=== PATIENT | male | born 1995 | race Caucasian/White ===

== ENCOUNTER 2025-06-26 19:16 | Emergency (ER) | payer OTHER ==
[~2025-06-26] VITALS: Ht 177.8 cm; Wt 78.0 kg
[2025-06-26 19:48] LABS: BASOPHILS 0.3 % (0.2-1.2); EOSINOPHILS 0.6 % (0.8-7.0); LYMPHOCYTES 18.9 % (21.8-53.1); MCH 29.3 PG (25.7-32.2); MCHC 33.2 g/dL (32.3-36.5); MCV 88.2 fL (79.0-92.2); MONOCYTES 7.9 % (5.3-12.2); NEUTROPHILS 71.8 % (34.0-67.9); RBC 4.82 M/uL (4.63-6.08)
[2025-06-26 20:06] LABS: ALT (SGPT) 27.0 U/L (14-59); AST (SGOT) 22.0 U/L (15-37); GLOMERULAR FILTRATION RATE,EST 84.0 mL/min (>60); PROTEIN, TOTAL 7.2 g/dL (6.4-8.2); UREA NITROGEN 19.0 mg/dL (7-18)
[2025-06-26] MEDS ORDERED: methylPREDNISolone 4 MG HOME.PACK PO ONE (20:45)
[2025-06-26] MEDS ORDERED: ALBUTEROL SULFATE 8 GM HOME.PACK INH ONE (20:45)
[2025-06-26 21:10] VITALS: BP 131/69
--- NOTE | 2025-06-29 16:03 | EKG ---
[facility] [address] [facility] [place] [address] Signed Normal sinus rhythm Rightward axis Borderline ECG No previous ECGs available Confirmed by Alonso Carrington MD () on 06/29/2025 4:03:18 PM Electronically Signed By: ALONSO CARRINGTON MD 06/29/25 1603 PATIENT NAME: SRUTHI JC Electrocardiogram DATE OF : [birth year] PHYSICIAN: ALONSO CARRINGTON MD REPORT #: [id number] REPORT IS CONFIDENTIAL AND NOT TO BE RELEASED WITHOUT AUTHORIZATION
== END 2025-06-26 21:11 | disposition home or self-care (01) ==
LOC: ED 19:16
PROVIDERS: Family Medicine
DX: T59.811A Toxic effect of smoke, accidental (unintentional), initial encounter (principal); R11.0 Nausea
CPT/HCPCS: 36415; 71045; 80053; 82375; 82803; 85025; 93005; 93010; 94664; 99284-25